=== PATIENT | male | born 1980 | race Caucasian/White ===

== ENCOUNTER 2023-06-06 12:00 | Outpatient (REF) | payer OTHER, SELFPAY ==
[2023-06-06 13:56] LABS: MANUAL DIFF FLAG NO
[2023-06-06 14:05] LABS: Basophils Percent Auto 0.3 % (0-2); Eosinophils Absolute Auto 0.1 X10*3/uL (0.0-0.4); Eosinophils Percent Auto 1.9 % (0-4); Hematocrit 39.7 % (42.0-52.0); Hemoglobin 13.3 g/dl (14.0-18.0); Imm Gran Abs Auto 0.01 X10*3/uL (0.00-0.03); Imm Gran Pct Auto 0.3 % (0.0-0.4); Lymphocytes Absolute Auto 0.4 X10*3/uL (1.2-4.9); Lymphocytes Percent Auto 13.9 % (20-40); Mean Corpuscular HGB Conc 33.5 g/dl (31.0-36.0); Mean Corpuscular Volume 86.5 fL (80.0-98.0); Monocytes Absolute Auto 0.3 X10*3/uL (0.1-1.2); Monocytes Percent Auto 8.1 % (2-11); Neutrophils Absolute Auto 2.3 x10*3/uL (2.0-8.3); Neutrophils Percent Auto 75.5 % (45-73); Red Blood Count 4.59 X10*6/uL (4.60-5.80); Red Cell Distribution Width 14.1 % (11.0-16.0); White Blood Count 3.1 X10*3/uL (4.8-10.8)
[2023-06-06 14:14] LABS: Alanine Aminotransferase 22 U/L (0-40); Albumin Level 4.1 g/dL (3.5-5.0); Alkaline Phosphatase 70 U/L (39-117); Anion Gap 12 (12-20); Aspartate Amino Transferase 28 U/L (5-37); Bilirubin Total 0.7 mg/dL (0.0-1.0); Blood Urea Nitrogen 16 mg/dL (9-16); Carbon Dioxide 26 mmol/L (22-29); Chloride 106 mmol/L (96-108); Cholesterol 174 mg/dL (<200); Estimated Glomerular Filt Rate > 60; Glucose Random 117 mg/dL (60-115); HDL Cholesterol 86 mg/dL (>40); LDL Cholesterol Calculated 80 mg/dL (<100); Potassium 4.4 mmol/L (3.3-5.1); Sodium 140 mmol/L (135-145); Total Protein 6.9 g/dL (6.5-8.0); Triglycerides 43 mg/dL (<150)
[2023-06-06 14:21] LABS: Mean Platelet Volume 11.3 fL (9.4-12.4); Platelet Count 66 X10*3/uL (160-400)
== END 2023-06-06 12:01 | disposition home or self-care (01) ==
LOC: HO.HMGCLDS 12:00
PROVIDERS: PCP Internal Medicine; Visit Provider Internal Medicine
DX: Z00.01 Encounter for general adult medical examination with abnormal findings (principal); G47.33 Obstructive sleep apnea (adult) (pediatric); I10 Essential (primary) hypertension; K70.30 Alcoholic cirrhosis of liver without ascites
CPT/HCPCS: 36415; 80053; 80061; 85025

== ENCOUNTER 2024-11-11 23:04 | Emergency (ER) | payer OTHER, SELFPAY ==
--- OUTSIDE RECORDS SUMMARY | 2024-11-11 23:51 | XMS_ITS | Clinical Summary ---
Author Organization [facility] Address [address] [place] [address] Phone Care Team Providers Care Physical Education Specialist Name Role Phone Porfirio Sánchez MD Primary Care Provider [phone] Allergies No known active allergies Medications acamprosate (CAMPRAL) 333 MG EC tablet Take 666 mg by mouth 3 (three) times a day Do not crush, chew, or split. Active acetaminophen (TYLENOL) 325 MG tablet Take by mouth every 6 (six) hours if needed for mild pain Active buprenorphine-n aloxone (SUBOXONE) 8-2 MG per SL tablet Place 1 tablet under the tongue 1 (one) time each day Active citalopram (CeleXA) 10 MG tablet Take 10 mg by mouth 1 (one) time each day Active folic acid (FOLVITE) 1 MG tablet Take 1 mg by mouth 1 (one) time each day Active furosemide (LASIX) 40 MG tablet Take 40 mg by mouth 2 (two) times a day Active lactulose (CHRONULAC) 10 GM/15ML solution Take 20 g by mouth 3 (three) times a day Active Multiple Vitamins-Minera ls (multivitamin with minerals) tablet Take 1 tablet by mouth 1 (one) time each day Active ondansetron (ZOFRAN) 4 MG tablet Take 4 mg by mouth every 8 (eight) hours if needed for nausea or vomiting Active rifAXIMin (XIFAXAN) 550 MG tablet Take 550 mg by mouth Active spironolactone (ALDACTONE) 25 MG tablet Take 100 mg by mouth 1 (one) time each day Active thiamine (VITAMIN B-1) 100 MG tablet Take 100 mg by mouth 1 (one) time each day Active Active Problems Problem Noted Date Diagnosed Date Chronic kidney disease, stage 2 (mild) Opioid use disorder, mild 09/26/2020 Alcohol abuse 09/26/2020 Essential (primary) hypertension 09/26/2020 Cirrhosis of liver 09/26/2020 Family History Medical History Relation Comments Heart disease Father Hypertension Father Relation Status Comments Father Social History Tobacco Use Types Packs/Day Years Used Date Smoking Tobacco: Never Assessed Sex and Gender Information Value Date Recorded Sex Assigned at Not on file Legal Sex Male 10:13 AM EDT Gender Identity Not on file Sexual Orientation Not on file Last Filed Vital Signs Vital Sign Reading Time Taken Comments Blood Pressure 139/60 10/02/2020 2:09 PM EDT Pulse - - Temperature - - Respiratory Rate - - Oxygen Saturation 98% 10/02/2020 2:09 PM EDT Inhaled Oxygen Concentration - - Weight 117 kg (257 lb 6.4 oz) 10/02/2020 2:09 PM EDT Height - - Body Mass Index - - Plan of Treatment Health Maintenance Due Date Last Done Comments Hepatitis B Vaccine (1 of 3 - 19+ 3-dose series) 09/23 Pneumococcal Vaccine: Peds ( 0 to 5 Years) and At-Risk Patients (6 to 49 Years) (1 of 2 - PCV) 2000 Influenza Vaccine (#1) 2024 Insurance Medicaid * Guarantor: Flynn Richard Account Type Relation to Patient Date of Phone Billing Address Personal/Family Self [address] [place] [address] Ctr Medicaid Care Teams Physical Education Specialist Relationship Specialty Start Date End Date Porfirio Sánchez MD [address] [place] [id number] PCP - General Internal Medicine 03/30/20
[2024-11-12] VITALS (7 sets, daily range): BP systolic 98–126; BP diastolic 67–99; PULSE 75–140; RESP 17–20; TEMP 36.3–37.2; O2SAT 95–97; BMI 41.3
--- NOTE | 2024-11-12 00:20 | PC.NURSE ---
Pt BIB EMS for reports of alcohol intoxication looking for detox, and 1 week of thoughts of self harm. Pt calm and cooperative during drying rack changer until cell phone was requested. Pt then wanted to leave. T/w explained policy and procedure for pt coming in with these complaints. Pt wanted to speak with charge nurse. Security at bedside. charge nurse notified, and pt trying to leave security assisted back into bed. IV placed by EMS accidentally pulled out. at bedside, pt adamantly denying SI/HI or any thoughts of self harm. PT reports that he wanted detox and unhappy to be at this hospital and wants to keep his phone. agreeable to pt having his phone. Pt willing to stay to receive help for detox admit. Pt being disrespectful toward wheel braiderOchoa Graham and t/w told pt that disrespectful behavior will not be tolerated. After about 15 minutes. Pt apologized to this RN and tech for his disrespectful behavior. Pt again calm and cooperative. agreeable to labs, request to wait a few minutes. Call zepeda within reachGladys 1:1 sitter at this time, Plan of care ongoing.
--- NOTE | 2024-11-12 00:59 | MHC.EDTECH ---
Patient refused blood work, RN aware.
--- NOTE | 2024-11-12 01:03 | ECG_ITS ---
Test Reason : TACHYCARDIA Blood Pressure : */* mmHG Vent. Rate : 88 BPM Atrial Rate : 88 BPM P-R Int : 168 ms QRS Dur : 100 ms QT Int : 364 ms P-R-T Axes : 62 -56 49 degrees QTcB Int : 440 ms Normal sinus rhythm Left anterior fascicular block Abnormal ECG No previous ECGs available Referred By: Ira Christopher Electronically Signed By: Kirk Medina
--- NOTE | 2024-11-12 01:52 | ED.ALCOHOL ---
HPI - Alcohol General Chief Complaint: ETOH/Substance Use Stated Complaint: ETOH, SI Time Seen by Provider: 11/11/24 23:21 Source: patient and EMS Mode of arrival: EMS Limitations: other (intoxicated) History of Present Illness ED Provider: ANSELMO DOMINIQUE narrative: 44 yo male with PMH of HTN and ETOH abuse who states he drinks hard liquor but has never had ETOH withdrawal seizures. He states they made him come tonight I am not sure who they are. He told EMS he had self harm thoughts but then he told us he only said that to get into detox faster. He has been trying this week to get into detox no luck. He was doing great for 9 months he has been on vivitrol. He started drinking again. He denies any falls or headstrike MD complaint: alcohol intoxication Last drink: Just prior to admission Chronic alcohol use: Yes Previous visits for alcohol intoxication: Yes Recent trauma: No Associated symptoms: denies other symptoms Treatments prior to arrival: none Related Data Allergies Allergy/AdvReac Type Severity Reaction Status Date / Time No Known Allergies Allergy Unverified 11/12/24 00:02 Review of Systems Review of Systems: Constitutional : No Fever, No Chills ENT/Mouth : No Ear Pain, No Nasal Congestion, No sore throat Eyes: No Eye Pain, No Swelling, No Redness Cardiovascular : No Chest Pain, No SOB Respiratory : No Cough, No Sputum, No Dyspnea Gastrointestinal : No Nausea, No Vomiting, No Diarrhea, No Hematochezia, No Melena Genitourinary : No Dysuria, No Urinary Frequency, No Hematuria Musculoskeletal : No Myalgias Skin : No Skin Lesions, No rash Neuro : No Weakness, No Numbness, No Paresthesias, No Dizziness, No Headache Psych : positive Anxiety, positive Depression, no SI/HI All other systems reviewed and are negative [facility] Past Medical History Attestation statement: The following information was validated with the patient. Source: old records reviewed Medical History Alcohol abuse HTN (hypertension) Social History Social History (Updated 11/12/24 @ 01:58 by Ira Christopher DO) Alcohol intake: current Alcohol intake frequency: 3 or more drinks per day Alcohol type: hard liquor Patient Tobacco Use Status: Tobacco use Unknown Smoked in Last 30 Days: Yes Use of substances other than those prescribed or required for medical reasons: Yes Substance Use Type: Marijuana Substance Use Frequency: Occasionally Advance Directives: No Physical Exam ED Vital Signs: Vital Signs - 24 hr 11/12/24 00:02 11/12/24 01:58 11/12/24 04:00 Temperature 98.9 F 97.9 F Pulse Rate 140 H 96 Respiratory Rate 18 20 18 Blood Pressure 117/85 98/70 Pulse Oximetry 97 97 Oxygen Delivery Method Room Air Room Air 11/12/24 06:00 11/12/24 07:21 Temperature 97.4 F Pulse Rate 75 Respiratory Rate 18 17 Blood Pressure 99/67 Pulse Oximetry 95 Oxygen Delivery Method Room Air BMI result Body Mass Index 41.3 Appearance: Alert. Oriented X3. No acute distress. ETOH odor, intoxicated, slurred speech Eyes: Pupils equal, round and reactive to light. ENT: Pharynx normal. atraumatic Neck: Normal inspection. Neck supple. CVS: Normal heart rate and rhythm. Pulses normal. Respiratory: No respiratory distress. Breath sounds normal. Abdomen: Soft and nontender. Skin: Skin warm and dry. Normal skin color. Normal skin turgor. Extremities: No lower extremity edema. No calf ttp Neuro: Oriented X 3. No motor deficit. No sensory deficit. CN2-12 intact Course Reevaluation(s) Reevaluation #1: I, Dr. Leonard have take over the care of this patient, patient has a bed at [facility] he is not going to go directly there from the hospital he wants to go home and hot die picker some clothing and then proceed to the recovery center Time: 09:34 Medical Decision Making Medical Decision Making MDM Narrative: 44 yo male with PMH of HTN and ETOH abuse here asking for detox no SI and no head trauma at this time will obtain basic labs, recovery team consult Differential Diagnosis Differential Diagnoses: The differential diagnosis associated with the presentation includes ETOH abuse Admission/Observation Consideration of admission/observation: Escalation of care including admission/observation considered physician observation started at 220pm pending care team signed out to Dr. Bridges Lab Data 11/12/24 02:16 11/12/24 02:16 Labs: Lab Results 11/12/24 Range/Units 02:16 WBC 3.4 L (4.8-10.8) X10*3/uL RBC 4.28 L (4.60-5.80) X10*6/uL Hgb 14.3 (14.0-18.0) g/dl Hct 38.6 L (42.0-52.0) % MCV 90.2 (80.0-98.0) fL MCH 33.4 H (27.0-33.0) pg MCHC 37.0 H (31.0-36.0) g/dl RDW 14.7 (11.0-16.0) % Plt Count 50 L (160-400) X10*3/uL MPV 10.9 (9.4-12.4) fL Immature Gran % (Auto) 0.3 (0.0-0.4) % Neut % (Auto) 70.7 (45-73) % Lymph % (Auto) 19.6 L (20-40) % [place] % (Auto) 7.0 (2-11) % Eos % (Auto) 1.8 (0-4) % Baso % (Auto) 0.6 (0-2) % Lymph # (Auto) 0.7 L (1.2-4.9) X10*3/uL [place] # (Auto) 0.2 (0.1-1.2) X10*3/uL Eos # (Auto) 0.1 (0.0-0.4) X10*3/uL Baso # (Auto) 0.0 (0.0-0.2) X10*3/uL Abs Immat Gran (auto) 0.01 (0.00-0.03) X10*3/uL Absolute Neuts (auto) 2.4 (2.0-8.3) x10*3/uL Absolute Nucleated RBC 0.000 (0.0-0.012) X10*3/uL Nucleated RBC % (auto) 0.0 (0.0-0.2) /100WBC Smear Tech's Comments VERIFIED Sodium 144 (135-145) mmol/L Potassium 3.5 D (3.3-5.1) mmol/L Chloride 103 (96-108) mmol/L Carbon Dioxide 24 (22-29) mmol/L Anion Gap 21 H (12-20) BUN 10 (9-16) mg/dL Creatinine 1.15 (0.5-1.4) mg/dL Estim Creat Clear Calc 109.1 Estimated GFR > 60 Random Glucose 135 H (60-115) mg/dL Calcium 8.4 D (8.4-10.2) mg/dL Magnesium 2.0 (1.6-2.6) mg/dL Total Bilirubin 1.2 H (0.0-1.0) mg/dL Direct Bilirubin 0.5 (0.0-0.5) mg/dL AST 61 H (5-37) U/L ALT 50 H (0-40) U/L Alkaline Phosphatase 89 (39-117) U/L Troponin I High Sens < 2.7 (<3.5-35.0) ng/L Total Protein 6.7 (6.5-8.0) g/dL Albumin 4.4 (3.5-5.0) g/dL Lipase 33 (8-78) U/L Ethyl Alcohol 282 mg/dL Independent Interpretation I performed an independent interpretation of an: EKG Interpretation: Rate: 88 Rhythm: NSR [place]: left Normal P waves. Normal YIN. Normal QRS complex. ST T wave : normal no SURJIT qTC: 440 prior studies: no acute ischemia The study has been interpreted contemporaneously by me. . Independent Historian Clinical information obtained from an independent historian. History obtained from or confirmed by: EMS External Record Review External record reviewed: Outpatient record Medications Administered Generic Name Dose Route Start Last Admin Trade Name Freq PRN Reason Stop Dose Admin Lorazepam 2 mg 11/12/24 01:03 11/12/24 02:18 Lorazepam 1 Mg Tablet PO 2 mg Q3H PRN Administration Alcohol Withdrawal Discharge Plan Discharge Clinical Impression: Alcoholic intoxication Patient Disposition: Home, Self-Care Instructions: Abuse of Alcohol (ED) Additional Instructions: Alcohol use disorder You were seen in the Emergency Department today for treatment of alcohol use disorder.? You may have been given medications to help with your withdrawal symptoms.? Please do not drink alcohol with them. This is very dangerous and can cause respiratory depression or other adverse reactions depending on the medication. If you would like to cut down or stop your alcohol use please consider calling our outpatient Addiction Treatment office:? [facility] (M-F [id number]) [address] [place] [address] You have also been given a list of treatment providers in the area that can assist as well.? If you experience seizures, vomiting blood, black stools, falls, severe headache, chest pain, fevers, trouble breathing, hallucinations or any other concerns you need to call 911 or seek immediate care. Please stay hydrated. Print Language: Malay
--- NOTE | 2024-11-12 02:07 | PC.NURSE ---
Pt reporting feeling restless an anxious. PRN ativan ordered. Will medicate.
[2024-11-12 02:48] LABS: Imm Gran Abs Auto 0.01 X10*3/uL (0.00-0.03); Imm Gran Pct Auto 0.3 % (0.0-0.4); Lymphocytes Absolute Auto 0.7 X10*3/uL (1.2-4.9); MANUAL DIFF FLAG SCAN; NRBC Abs Auto 0.000 X10*3/uL (0.0-0.012); NRBC Pct Auto 0.0 /100WBC (0.0-0.2); PLT CLUMP 1; SCAN SMEAR FLAG 1
[2024-11-12 02:49] LABS: Hematocrit 38.6 % (42.0-52.0); Hemoglobin 14.3 g/dl (14.0-18.0); Mean Corpuscular HGB Conc 37.0 g/dl (31.0-36.0); Mean Corpuscular Hemoglobin 33.4 pg (27.0-33.0); Mean Corpuscular Volume 90.2 fL (80.0-98.0); Red Blood Count 4.28 X10*6/uL (4.60-5.80)
[2024-11-12 02:50] LABS: Troponin-I High Sensitivity < 2.7 ng/L (<3.5-35.0)
[2024-11-12 02:55] LABS: Platelet Count 50 X10*3/uL (160-400); White Blood Count 3.4 X10*3/uL (4.8-10.8)
[2024-11-12 02:59] LABS: Alanine Aminotransferase 50 U/L (0-40); Albumin Level 4.4 g/dL (3.5-5.0); Alkaline Phosphatase 89 U/L (39-117); Anion Gap 21 (12-20); Aspartate Amino Transferase 61 U/L (5-37); Blood Urea Nitrogen 10 mg/dL (9-16); Calcium 8.4 mg/dL (8.4-10.2); Carbon Dioxide 24 mmol/L (22-29); Chloride 103 mmol/L (96-108); Creatinine Clr Calc Pharmacy 109.1; Estimated Glomerular Filt Rate > 60; Lipase 33 U/L (8-78); Magnesium 2.0 mg/dL (1.6-2.6); Potassium 3.5 mmol/L (3.3-5.1); Sodium 144 mmol/L (135-145); Total Protein 6.7 g/dL (6.5-8.0)
--- NOTE | 2024-11-12 07:35 | PC.NURSE ---
this RN assumed care of pt at 0645. pt a&ox4. awake but sleepy. vss and up to date. unable to currently assess SI/HI at this time as patient falls asleep when being asked questions. updated CIWA = 2. pt otherwise on RA w/o difficulty. no sob/wob noted. respirations even/unlabored. 1:1 sitter remains present. lights dimmed to promote comfort. plan of care ongoing. call zepeda placed within reach.
--- NOTE | 2024-11-12 09:30 | MHC.RECOVRN ---
Met with pt in ED18 to discuss etoh use, readiness for change, and recovery supports. Pt stated he has been drinking 20+ nips of Vodka daily x6 months. He has been to ATS (detox) in the past and had a positive experience at [facility] ([facility]) where he wishes to go again. Pt called and verified yesterday that they have a bed for him today. Pt calling agan now to confirm. Pt wants to go home first to pack some clothes before going to [facility]. He does not want to be transported there directly from the hospital. Primary RN and MD made aware.
== END 2024-11-12 13:00 | disposition home or self-care (01) ==
PROVIDERS: Emergency Provider Emergency Medicine
DX: F10.129 Alcohol abuse with intoxication, unspecified (principal); R45.851 Suicidal ideations; Y90.8 Blood alcohol level of 240 mg/100 ml or more; R00.0 Tachycardia, unspecified; Z51.81 Encounter for therapeutic drug level monitoring; Z79.899 Other long term (current) drug therapy
CPT/HCPCS: 36415; 80048; 80076; 80307; 83690; 83735; 84484; 85025; 93005; 99285; S9485

== ENCOUNTER → 2024-11-12 01:03 | Outpatient (BNV) | payer OTHER, SELFPAY | PROVIDERS: Emergency Provider Emergency Medicine; Visit Provider Internal Medicine Cardiovascular Disease | DX: I44.4 Left anterior fascicular block (principal) | CPT/HCPCS: 93010 ==